=== PATIENT | male | born 1955 | race Caucasian/White ===

== ENCOUNTER 2016-07-29 11:38 | Inpatient (IN) | payer BC, OTHER ==
[2016-07-29] MEDS ORDERED: SODIUM CHLORIDE 0.9% 1,000 ML IV STA (11:58)
[2016-07-29 11:59] LABS: Glucose,Whole Blood 103 mg/dL (75-99)
--- NOTE | 2016-07-29 12:13 | ED ---
General Adult HPI - General Chief complaint: Neuro Symptoms/Deficit Stated complaint: rt side weakness Time Seen by Provider: 07/29/16 11:51 Source: patient, family, RN notes reviewed Mode of arrival: wheelchair Limitations: no limitations - History of Present Illness Initial comments: Patient is a pleasant 61-year-old male presenting to the emergency department complaining of right-sided weakness. Onset was yesterday morning. Symptoms are persistent. No history of similar symptoms previously. No confusion. No trauma. No headache. Patient does drink alcohol frequently. - Related Data Home Medications Medication Instructions Recorded Confirmed Multivit-Min/FA/Lycopene/Lut 1 tab PO PC-SUPPER 01/03/16 07/29/16 [Centrum Silver Tablet] Previous Rx's Medication Instructions Recorded amLODIPine [Norvasc] 5 mg PO DAILY #10 tab 01/04/16 Allergies Allergy/AdvReac Type Severity Reaction Status Date / Time No Known Allergies Allergy Verified 07/29/16 12:15 Review of Systems ROS Statement: Those systems with pertinent positive or pertinent negative responses have been documented in the HPI. ROS Other: All systems not noted in ROS Statement are negative. Constitutional: Denies: fever Eyes: Denies: eye pain ENT: Denies: ear pain Respiratory: Denies: cough Cardiovascular: Denies: chest pain Endocrine: Denies: fatigue Gastrointestinal: Denies: abdominal pain Genitourinary: Denies: dysuria Musculoskeletal: Denies: back pain Skin: Denies: rash Neurological: Reports: weakness. Denies: headache, paresthesias, confusion Past Medical History Past Medical History: Musculoskeletal Disorder, Neurologic Disorder Additional Past Medical History / Comment(s): 20# WGT LOSS, EXCESSIVE SLEEPING, WEAKNESS FOR PAST MONTH.headaches, diverticulosis, BP elevated with colonoscopy 12/18/15 has since seen ,horse shoe kidney, lower back pains @ times History of Any Multi-Drug Resistant Organisms: None Reported Past Surgical History: No Surgical Hx Reported Additional Past Surgical History / Comment(s): Colonoscopy 12/18/15 Additional Past Anesthesia/Blood Transfusion Reaction / Comment(s): elevated bp with colonoscopy-has since seen PCP Past Psychological History: Anxiety Smoking Status: Current every day smoker Past Alcohol Use History: Abuse, Heavy Additional Past Alcohol Use History / Comment(s): Smoker since age 18-1/2-1 ppd, . Was having 2-4 beers a day-has not had any since before colonoscopy 12/18/15 Past Drug Use History: None Reported Additional Drug Use History / Comment(s): SEV DAYS PER WK - Past Family History Father Family Medical History: Cancer, Diabetes Mellitus Additional Family Medical History / Comment(s): esophageal ca- Mother Family Medical History: Hypertension, Thyroid Disorder General Exam Limitations: no limitations General appearance: alert, in no apparent distress Head exam: Present: atraumatic Eye exam: Present: normal appearance, PERRL, EOMI ENT exam: Present: normal oropharynx Neck exam: Present: normal inspection Respiratory exam: Present: normal lung sounds bilaterally Cardiovascular Exam: Present: regular rate, normal rhythm GI/Abdominal exam: Present: soft. Absent: tenderness Extremities exam: Present: normal inspection Neurological exam: Present: alert, oriented X3, CN II-XII intact Expanded Speech: Present: fluid speech Sensory exam: Upper Extremity Light Touch: Normal, Lower Extremity Light Touch: Normal Motor strength exam: RUE: 4, LUE: 5, RLE: 4, LLE: 5 Eye Response: (4) open spontaneously Motor Response: (6) obeys commands Verbal Response: (5) oriented Psychiatric exam: Present: normal affect, normal mood Skin exam: Absent: rash Course Vital Signs 07/29/16 07/29/16 11:42 13:27 Temperature 98.9 F Pulse Rate 91 82 Respiratory 20 16 Rate Blood Pressure 197/108 184/109 O2 Sat by Pulse 96 98 Oximetry EKG Findings - EKG Comments: EKG Findings:: Normal sinus rhythm at 83. RI 160. QRS 88. QT 388. QTC 455. Left axis. Normal QRS. Normal ST-T. Medical Decision Making - Medical Decision Making Patient reevaluated and resting comfortably in bed. Unchanged. Case discussed in detail with Dr. reid, who will admit his patient with neurology consult. - Lab Data Result diagrams: 07/29/16 12:12 07/29/16 12:12 Lab Results 07/29/16 07/29/16 07/29/16 Range/Units 11:57 12:12 12:12 WBC 5.3 (3.8-10.6) k/uL RBC 5.22 (4.30-5.90) m/uL Hgb 16.7 (13.0-17.5) gm/dL Hct 49.9 (39.0-53.0) % MCV 95.5 (80.0-100.0) fL MCH 32.0 (25.0-35.0) pg MCHC 33.5 (31.0-37.0) g/dL RDW 13.0 (11.5-15.5) % Plt Count 247 (150-450) k/uL Neutrophils % 70 % Lymphocytes % 19 % Monocytes % 6 % Eosinophils % 2 % Basophils % 0 % Neutrophils # 3.7 (1.3-7.7) k/uL Lymphocytes # 1.0 (1.0-4.8) k/uL Monocytes # 0.3 (0-1.0) k/uL Eosinophils # 0.1 (0-0.7) k/uL Basophils # 0.0 (0-0.2) k/uL PT (9.0-12.0) sec INR (<1.1) APTT (22.0-30.0) sec Sodium (137-145) mmol/L Potassium (3.5-5.1) mmol/L Chloride (98-107) mmol/L Carbon Dioxide (22-30) mmol/L Anion Gap mmol/L BUN (9-20) mg/dL Creatinine (0.66-1.25) mg/dL Est GFR (MDRD) Af Amer (>60 ml/min/1.73 sqM) Est GFR (MDRD) Non-Af (>60 ml/min/1.73 sqM) Glucose (74-99) mg/dL POC Glucose (mg/dL) 103 H (75-99) mg/dL POC Glu [employer] Intern ID Branch, Fredi Calcium (8.4-10.2) mg/dL Total Bilirubin (0.2-1.3) mg/dL AST (17-59) U/L ALT (21-72) U/L Alkaline Phosphatase (38-126) U/L Total Creatine Kinase 43 L (55-170) U/L CK-MB (CK-2) <0.2 (0.0-2.4) ng/mL CK-MB (CK-2) Rel Index Troponin I <0.012 (0.000-0.034) ng/mL Total Protein (6.3-8.2) g/dL Albumin (3.5-5.0) g/dL Serum Alcohol mg/dL 07/29/16 07/29/16 Range/Units 12:12 12:12 WBC (3.8-10.6) k/uL RBC (4.30-5.90) m/uL Hgb (13.0-17.5) gm/dL Hct (39.0-53.0) % MCV (80.0-100.0) fL MCH (25.0-35.0) pg MCHC (31.0-37.0) g/dL RDW (11.5-15.5) % Plt Count (150-450) k/uL Neutrophils % % Lymphocytes % % Monocytes % % Eosinophils % % Basophils % % Neutrophils # (1.3-7.7) k/uL Lymphocytes # (1.0-4.8) k/uL Monocytes # (0-1.0) k/uL Eosinophils # (0-0.7) k/uL Basophils # (0-0.2) k/uL PT 10.8 (9.0-12.0) sec INR 1.1 (<1.1) APTT 27.3 (22.0-30.0) sec Sodium 142 (137-145) mmol/L Potassium 4.4 (3.5-5.1) mmol/L Chloride 105 (98-107) mmol/L Carbon Dioxide 30 (22-30) mmol/L Anion Gap 7 mmol/L BUN 11 (9-20) mg/dL Creatinine 1.10 (0.66-1.25) mg/dL Est GFR (MDRD) Af Amer >60 (>60 ml/min/1.73 sqM) Est GFR (MDRD) Non-Af >60 (>60 ml/min/1.73 sqM) Glucose 98 (74-99) mg/dL POC Glucose (mg/dL) (75-99) mg/dL POC Glu [employer] Intern ID Calcium 9.5 (8.4-10.2) mg/dL Total Bilirubin 0.9 (0.2-1.3) mg/dL AST 16 L (17-59) U/L ALT 21 (21-72) U/L Alkaline Phosphatase 71 (38-126) U/L Total Creatine Kinase (55-170) U/L CK-MB (CK-2) (0.0-2.4) ng/mL CK-MB (CK-2) Rel Index Troponin I (0.000-0.034) ng/mL Total Protein 7.2 (6.3-8.2) g/dL Albumin 3.9 (3.5-5.0) g/dL Serum Alcohol <10 mg/dL - Radiology Data Radiology results: image reviewed (Computed tomography scan of the brain shows degenerative changes and remote ischemia. No acute intercranial hemorrhage or mass effect or shift. Two-view chest x-ray shows no acute process.) Disposition Clinical Impression: Cerebrovascular accident Disposition: ADMITTED IP TO THIS [facility] Condition: Serious
[2016-07-29 12:20] LABS: Basophils % (A) 0 %; CH 32.7; CHCM 34.4; Eosinophils # (A) 0.1 k/uL (0-0.7); Eosinophils % (A) 2 %; HCT 49.9 % (39.0-53.0); HDW 2.42; HGB 16.7 gm/dL (13.0-17.5); Luc # (Auto) 0.13; Luc % (Auto) 3; Lymphocytes % (A) 19 %; MCHC 33.5 g/dL (31.0-37.0); MCV 95.5 fL (80.0-100.0); Mean Platelet Volume 7.3; Monocytes # (A) 0.3 k/uL (0-1.0); Monocytes % (A) 6 %; Neutrophils # (A) 3.7 k/uL (1.3-7.7); Neutrophils % (A) 70 %; RBC 5.22 m/uL (4.30-5.90); WBC 5.3 k/uL (3.8-10.6); WBC (Perox) 5.36
[2016-07-29 12:31] LABS: ALT 21 U/L (21-72); AST 16 U/L (17-59); Alcohol <10 mg/dL; Alkaline Phosphatase 71 U/L (38-126); Anion Gap 7 mmol/L; Blood Urea Nitrogen 11 mg/dL (9-20); Calcium 9.5 mg/dL (8.4-10.2); Carbon Dioxide 30 mmol/L (22-30); Chloride 105 mmol/L (98-107); Glucose 98 mg/dL (74-99); Non-African American GFR(MDRD) >60 (>60 ml/min/1.73 sqM); Potassium 4.4 mmol/L (3.5-5.1); Sodium 142 mmol/L (137-145); Total Bilirubin 0.9 mg/dL (0.2-1.3); Total Protein 7.2 g/dL (6.3-8.2)
[2016-07-29 12:32] LABS: INR 1.1 (<1.1); Partial Thromboplastin Time 27.3 sec (22.0-30.0); Prothrombin Time 10.8 sec (9.0-12.0)
[2016-07-29 12:37] LABS: Creatine Kinase 43 U/L (55-170)
[2016-07-29 12:50] LABS: Creatine Kinase MB <0.2 ng/mL (0.0-2.4); Troponin I <0.012 ng/mL (0.000-0.034)
--- NOTE | 2016-07-29 13:03 | XR ---
EXAMINATION TYPE: XR chest 2V DATE OF EXAM: 07/29/2016 12:46 PM COMPARISON: Chest x-ray January 04, 2016. HISTORY: Right-sided chest pain. TECHNIQUE: Frontal and lateral views of the chest are obtained. FINDINGS: There is no focal air space opacity, pleural effusion, or pneumothorax seen. The cardiac silhouette size is within normal limits. Old fracture deformities of the right lateral sixth and gisela nth ribs is redemonstrated along with the left lateral seventh rib. IMPRESSION: No acute cardiopulmonary process. No significant change from prior.
--- NOTE | 2016-07-29 13:03 | CT ---
EXAMINATION TYPE: CT brain wo con DATE OF EXAM: 07/29/2016 12:46 PM COMPARISON: 12/20/2015 HISTORY: Patient complains of right side weakness. CT DLP: 1100 mGycm Automated exposure control for dose reduction was used. FINDINGS: Mild to moderate generalized degenerative change. Remote infarction involving the left basal ganglia noted. Lacunar infarction involving the head of the caudate nucleus and thalamus bilaterally noted. Nonspecific white matter changes are seen most likely in the basis of remote microvascular ischemia. Intracranial vascular disease noted. IMPRESSION: No acute intracranial hemorrhage, mass effect, or midline shift is seen. Degenerative and suspected remote ischemic changes as discussed above.
[2016-07-29] MEDS ORDERED: ASPIRIN 325 MG TAB PO STA (14:25)
[2016-07-29] MEDS ORDERED: NICOTINE 14MG/24HR PATCH TRANSDERM STA (14:28)
[2016-07-29] MEDS ORDERED: LORazepam 2 MG/ML SYRINGE IV PRN ×4 (14:30)
[2016-07-29] MEDS ORDERED: THIAMINE 100 MG/ML 2 ML VIAL IM STA (14:30)
[2016-07-29] MEDS: SODIUM CHLORIDE 0.9% 1,000 ML IV SCH (18:47)
[2016-07-29] MEDS: THIAMINE 100 MG TAB PO SCH (19:02)
--- NOTE | 2016-07-29 21:28 | US ---
EXAMINATION TYPE: US carotid duplex BILAT DATE OF EXAM: 07/29/2016 9:16 PM COMPARISON: NONE CLINICAL HISTORY: Stenosis. Weakness in right arm and leg EXAM MEASUREMENTS: RIGHT: Peak Systolic Velocity (PSV) cm/sec ----- Right CCA: 44.4 ----- Right ICA: 39.8 ----- Right ECA: 91.8 ICA/CCA ratio: 0.9 RIGHT: End Diastole cm/sec ----- Right CCA: 10.4 ----- Right ICA: 13.5 ----- Right ECA: 11.5 LEFT: Peak Systolic Velocity (PSV) cm/sec ----- Left CCA: 55.4 ----- Left ICA: 64.7 ----- Left ECA: 71.1 ICA/CCA ratio: 1.2 LEFT: End Diastole cm/sec ----- Left CCA: 10.4 ----- Left ICA: 18.6 ----- Left ECA: 11.5 VERTEBRALS (direction of flow): Right Vertebral: Antegrade Left Vertebral: Antegrade TECHNOLOGIST IMPRESSION: IMPRESSION: There is antegrade flow in the vertebral arteries. The images and measurements suggest 5 0% stenosis in the left internal carotid artery and close to 50% stenosis in the right internal carot id artery. Criteria for Assigning % of Stenosis / Diameter reduction (Estimation based on the indirect measurements of the internal carotid artery velocities (ICA PSV). 1. Normal (no stenosis)=ICA PSV < 125 cm/s: ratio < 2.0: ICA EDV<40 cm/s. 2. Less than 50% stenosis=ICA PSV < 125 cm/s: ratio < 2.0: ICA EDV<40 cm/s. 3. 50 to 69% stenosis=ICA PSV of 125 to 230 cm/s: ration 2.0 ? 4.0: ICA EDV 40-100 cm/s. 4. Greater than 70% stenosis to near occlusion= ICA PSV > 230 cm/s: ratio > 4.0: ICA EDV > 100 cm/s. 5. Near occlusion= ICA PSV velocities may be low or undetectable: variable ratio and ICA EDV. 6. Total occlusion=unable to detect flow.
[2016-07-30] MEDS: SODIUM CHLORIDE 0.9% 1,000 ML IV SCH ×3 (06:05→20:52)
--- NOTE | 2016-07-30 11:02 | ECHOF ---
Referral Reason:Thrombus MEASUREMENTS -------- HEIGHT: 170.2 cm WEIGHT: 72.6 kg BP: 171/113 RVIDd: 3.0 cm (< 3.3) IVSd: 1.4 cm (0.6 - 1.1) LVIDd: 3.7 cm (3.9 - 5.3) LVPWd: 1.4 cm (0.6 - 1.1) IVSs: 2.0 cm LVIDs: 2.9 cm LVPWs: 1.6 cm LA Diam: 3.0 cm (2.7 - 3.8) LAESV Index (A-L): 21.62 ml/m Ao Diam: 4.2 cm (2.0 - 3.7) AV Cusp: 2.4 cm (1.5 - 2.6) LA Diam: 2.3 cm (2.7 - 3.8) MV EXCURSION: 11.714 mm (> 18.000) MV EF SLOPE: 54 mm/s (70 - 150) EPSS: 0.6 cm MV E George: 0.61 m/s MV DecT: 326 ms MV A George: 0.89 m/s MV E/A Ratio: 0.69 FINDINGS -------- Sinus rhythm. This was a technically good study. The left ventricular size is normal. There is moderate concentric left ventricular hypertrophy. Overall left ventricular systolic function is normal with, an EF between 55 - 60 %. The right ventricle is normal in size. Normal LA size by volume 22+/-6 ml/m2. The right atrium is normal in size. The aortic valve is trileaflet and appears structurally normal. The mitral valve is normal. Mild mitral regurgitation is present. The tricuspid valve appears structurally normal. The pulmonic valve was not well visualized. There is no pulmonic regurgitation present. The aortic root is dilated measuring 4.2cm. Normal inferior vena cava with normal inspiratory collapse consistent with estimated right atrial pressure of 5 mmHg. There is no pericardial effusion. CONCLUSIONS -------- 1. Sinus rhythm. 2. The aortic root is dilated measuring 4.2cm. 3. Normal inferior vena cava with normal inspiratory collapse consistent with estimated right atrial pressure of 5 mmHg. 4. There is no pericardial effusion. 5. This was a technically good study. 6. There is moderate concentric left ventricular hypertrophy. 7. Overall left ventricular systolic function is normal with, an EF between 55 - 60 %. 8. Normal LA size by volume 22+/-6 ml/m2. 9. The aortic valve is trileaflet and appears structurally normal. 10. Mild mitral regurgitation is present. 11. The tricuspid valve appears structurally normal. 12. The pulmonic valve was not well visualized. ACCOUNTS PAYABLE CLERK: Karen Peters RDCS
[2016-07-30] MEDS: FOLIC ACID 1 MG TAB PO SCH (11:11)
[2016-07-30] MEDS: MULTIVITAMINS, THERA 1 EACH TAB PO SCH (11:11)
[2016-07-30] MEDS: THIAMINE 100 MG TAB PO SCH ×2 (11:11→16:44)
--- NOTE | 2016-07-30 11:32 | P.HPIM ---
History of Present Illness H&P Date: 07/30/16 Chief Complaint: Right-sided weakness Patient is 61-year-old male, patient of Dr. Snider in the outpatient setting, with medical history significant for diverticulosis, hypertension, anxiety, nicotine dependence, and EtOH abuse. Patient states that he was in his normal state of health Friday night and when he woke up on Friday his right arm and right leg was weak. No history of similar episode. Patient denies recent illness, fevers, chills, nausea, vomiting, dysphagia, tinnitus, headache, diplopia, shortness of breath, chest pain, abdominal pain, numbness or tingling, urinary urgency, dysuria, hematuria, constipation or diarrhea. Patient reports good appetite. Patient reports that he drinks approximately 7 beers daily with last beer on Friday. CT brain without contrast on admission with evidence of mild to moderate generalized degenerative changes; remote infarction involving the left basal ganglia noted; lacunar infarction involving the head of the caudate nucleus and thalamus bilaterally noted; nonspecific white matter changes are seen most likely in the basis of remote white crevasse vascular ischemia; no acute intracranial hemorrhage, mass effect, or midline shift is seen. Chest x-ray on admission without evidence of acute cardiopulmonary process. EKG on admission shows normal sinus rhythm with left axis deviation. Ultrasound carotid duplex Doppler with evidence of 50% stenosis in the left internal carotid artery and posterior 50% stenosis in the right internal carotid artery. Admission labs essentially unremarkable. Blood pressure on admission 197/108. Patient was admitted to the selective care unit on telemetry with advanced neuro assessments and consult was requested for Dr. Breaux from neurology service and Dr. Raygoza from cardiovascular services. Upon examination, patient is sitting up in bed. Patient reports improvement in weakness in his right lower extremity but states right arm is still extremely weak. No other complaints overnight. Patient is swallowing without difficulty. Patient is urinating without difficulty. Denies headache, visual disturbances, nausea, vomiting, shortness of breath, or chest pain. Blood pressure 177/99. Past Medical History Past Medical History: Musculoskeletal Disorder, Neurologic Disorder Additional Past Medical History / Comment(s): diverticulosis,benign colon polyp removed,horse shoe kidney, lower back pains @ times History of Any Multi-Drug Resistant Organisms: None Reported Past Surgical History: No Surgical Hx Reported Additional Past Surgical History / Comment(s): Colonoscopy 12/18/15 Additional Past Anesthesia/Blood Transfusion Reaction / Comment(s): elevated bp with colonoscopy-has since seen PCP Past Psychological History: Anxiety Additional Psychological History / Comment(s): pt is independant, lives with his mom in a 2 story home.has 3 steps into home, upstairs and basement have 10 steps. no homecare services and no medical equipment. never served in the . Has worked as an auto electrician. Smoking Status: Current every day smoker Past Alcohol Use History: Occasional Additional Past Alcohol Use History / Comment(s): Smoker since age 18-1/2-1 ppd, . past medical record reflected that pt used to drink 2-4 beers a day, pt now stated he drinks occ( less than 14 per week) Past Drug Use History: None Reported Additional Drug Use History / Comment(s): SEV DAYS PER WK - Past Family History Father Family Medical History: Cancer, Diabetes Mellitus Additional Family Medical History / Comment(s): esophageal ca- Mother Family Medical History: Hypertension, Thyroid Disorder Medications and Allergies Home Medications Medication Instructions Recorded Confirmed Type Multivit-Min/FA/Lycopene/Lut 1 tab PO PC-SUPPER 01/03/16 07/29/16 History [Centrum Silver Tablet] Allergies Allergy/AdvReac Type Severity Reaction Status Date / Time No Known Allergies Allergy Verified 07/29/16 12:15 Physical Exam Vitals: Vital Signs Temp Pulse Pulse Resp BP BP Pulse Ox 07/30/16 04:00 97.6 F 92 16 177/95 96 07/30/16 00:00 97.2 F L 76 16 156/101 95 07/29/16 20:00 97.4 F L 75 16 165/102 96 07/29/16 18:29 97.8 F 77 18 180/112 97 07/29/16 16:55 98.3 F 70 16 183/109 99 07/29/16 16:27 98.3 F 70 16 183/109 99 07/29/16 15:27 72 16 178/112 99 07/29/16 15:13 75 16 178/112 97 Intake and Output 07/29/16 07/30/16 07/30/16 22:59 06:59 14:59 Intake Total 1350 Output Total 0 250 Balance 0 1350 -250 Intake: IV 1200 Sodium Chloride 0.9% 1, 1200 000 ml @ 100 mls/hr IV . Q10H [facility] Rx#:[id number] Oral 150 Output: Urine 0 250 Other: Voiding Method Toilet Toilet Urinal Urinal # Voids 1 Weight 75.2 kg GENERAL: Pt awake and alert, well-appearing, well-nourished, and in no acute distress. HEAD: Atraumatic, normocephalic. EYES: Pupils equal, round, and reactive to light, extraocular movements intact, sclera anicteric, conjunctiva are normal. ENT: Oropharynx clear without exudates. Moist mucous membranes. Tongue smooth, pink, no lesions, protrudes in midline. NECK:Normal range of motion, supple without lymphadenopathy or JVD. LUNGS: Breath sounds clear to auscultation bilaterally. No wheezes, rales, or rhonchi. HEART: Heart S1, S2, no S3 or S4. Regular rate and rhythm. No murmurs, rubs or gallops. ABDOMEN: Soft, nontender, nondistended, normoactive bowel sounds. No guarding, no rebound. No masses or organomegaly appreciated. EXTREMITIES: Palpable peripheral pulses. No edema. No calf tenderness. NEUROLOGICAL: Pt oriented x 3. Cranial nerves II through XII grossly intact. Speech fluent. Sensation intact. Right upper and right lower extremity weaker than left side. Gait not assessed. PSYCH: Normal mood, normal affect. SKIN: Warm, dry, intact. Normal turgor. No rashes or lesions. Results CBC & Chem 7: 07/29/16 12:12 07/29/16 12:12 Chest x-ray: report reviewed CT Scan - head: report reviewed Thrombosis Risk Factor Assmnt - DVT/VTE Prophylaxis DVT/VTE Prophylaxis: Pharmacologic Prophylaxis ordered, Mechanical Prophylaxis ordered - Choose All That Apply Any of the Below Risk Factors Present?: Yes Each Factor Represents 1 point: Age 41-60 years, Obesity (BMI >25) Other Risk Factors: Yes Other congenital or acquired thrombophilia - If yes, enter type in comment: No Each Risk Factor Represents 5 Points: Stroke (< 1 month) Thrombosis Risk Factor Assessment Total Risk Factor Score: 7 Thrombosis Risk Factor Assessment Level: High Risk Assessment and Plan Plan: Impression and plan: 1. Acute weakness to right upper and right lower extremity suspect secondary to acute CVA, exact time unknown. Neurology consult requested, recommendations pending. Continue full strength aspirin, advanced neurological assessment, physical therapy, DVT prophylaxis, and continuous cardiac monitoring. 2. 50% stenosis and left internal carotid artery and close to 50% stenosis in right internal carotid artery. Cardiovascular surgery consult requested, recommendations pending. Continue full strength aspirin. 3. Hypertensive urgency, present on admission, suspect secondary to possible vasospasms from CVA. Blood pressure improved this morning. Continue to hold Norvasc for now for cerebral perfusion. 4. History of hypertension and possible noncompliance with medications. 5. Nicotine dependence. Smoking cessation encouraged. 6. Alcohol abuse. CIWA protocol in place. Continue folic acid, multivitamin, and thiamine. Social work consult in place. 7. History of remote infarction involving left basal ganglia. 8. Lacunar infarction involving head of the caudate nucleus and thalamus bilaterally. 9. History of diverticulosis with last colonoscopy on 12/18/2015 with polypectomy. 10. History of EBV. Continue to monitor patient. Continue current medications. Continue to follow with neurology and cardiovascular surgery. Continue DVT prophylaxis. Repeat CBC and BMP in a.m. The above impression and plan have been discussed and directed by Dr. Snider. Howard FLOWER acting as scribe for Dr. Snider.
[2016-07-30] MEDS ORDERED: RX INFO: IV CONTRAST WAS GIVEN 1 EACH MISC MISCELLANE PRN ×2 (12:49→13:06)
[2016-07-30] MEDS: ASPIRIN 325 MG TAB PO SCH (13:09)
[2016-07-30] MEDS: amLODIPine 5 MG TAB PO SCH (14:36)
--- NOTE | 2016-07-30 14:42 | CT ---
CT angiogram head and neck HISTORY: Cerebral vascular accident Correlation to CT brain 29 July 2016 Helical acquisition obtained from the thoracic aorta through the drain following 65 cc Omni 350 IV. T hree-dimensional reconstructions on an alternate workstation The thoracic aorta is patent. The innominate, left and right common carotid, internal and external ca rotid, left and right subclavian, left and right vertebral arteries are patent. Atheromatous plaque p resent at the carotid bulb on the left. Internal carotid artery on the right is markedly tortuous. An terior and posterior circulations are intact. No evident aneurysm or vascular malformation. Lung apic es show emphysematous changes. IMPRESSION: Patent cerebrovascular circulation, no significant stenosis is evident.
--- NOTE | 2016-07-30 16:11 | P.GSCN ---
History of Present Illness History of present illness: 61 old white male, patient had an episode of right-sided weakness affecting his right arm and right leg with some recovery heparin on Friday patient came to the hospital on Friday and had a complete workup including CAT scan of the head which showed degenerative changes and also they found that patient has elected or infarct involving the caudate nucleus patient had ultrasound of the carotid which shows 50% stenosis of the bilateral internal carotid artery no history of speech problemof seizure problem Medical history history of diverticulosis, history of smoking daily basis On examination neck is supple no bruit appreciated Chest clear auscultation first and second sound normal Abdomen soft nontender Vascular examination brachial radial femoral pulses are present Center system patient is oriented to time and place patient has a mild weakness in the right arm and right leg compared to the left arm and leg his weakness is improving Patient on Ecotrin 325 mg daily and is scheduled to have a CT of the carotid waiting for the results we'll follow with you Past Medical History Past Medical History: Musculoskeletal Disorder, Neurologic Disorder Additional Past Medical History / Comment(s): diverticulosis,benign colon polyp removed,horse shoe kidney, lower back pains @ times History of Any Multi-Drug Resistant Organisms: None Reported Past Surgical History: No Surgical Hx Reported Additional Past Surgical History / Comment(s): Colonoscopy 12/18/15 Additional Past Anesthesia/Blood Transfusion Reaction / Comm: elevated bp with colonoscopy-has since seen PCP Past Psychological History: Anxiety Additional Psychological History / Comment(s): pt is independant, lives with his mom in a 2 story home.has 3 steps into home, upstairs and basement have 10 steps. no homecare services and no medical equipment. never served in the . Has worked as an marine electrician. Smoking Status: Current every day smoker Past Alcohol Use History: Occasional Additional Past Alcohol Use History / Comment(s): Smoker since age 18-1/2-1 ppd, . past medical record reflected that pt used to drink 2-4 beers a day, pt now stated he drinks occ( less than 14 per week) Past Drug Use History: None Reported Additional Drug Use History / Comment(s): SEV DAYS PER WK - Past Family History Father Family Medical History: Cancer, Diabetes Mellitus Additional Family Medical History / Comment(s): esophageal ca- Mother Family Medical History: Hypertension, Thyroid Disorder Medications and Allergies Home Medications Medication Instructions Recorded Confirmed Type Multivit-Min/FA/Lycopene/Lut 1 tab PO PC-SUPPER 01/03/16 07/29/16 History [Centrum Silver Tablet] Allergies Allergy/AdvReac Type Severity Reaction Status Date / Time No Known Allergies Allergy Verified 07/29/16 12:15 Surgical - Exam Vital Signs Temp Pulse Resp BP Pulse Ox 98.9 F 91 20 197/108 96 07/29/16 11:42 07/29/16 11:42 07/29/16 11:42 07/29/16 11:42 07/29/16 11:42 Results - Labs 07/29/16 12:12 07/29/16 12:12
[2016-07-31] MEDS: SODIUM CHLORIDE 0.9% 1,000 ML IV SCH ×2 (06:15→17:41)
[2016-07-31 06:24] LABS: Basophils % (A) 0 %; CH 32.5; CHCM 33.6; Eosinophils # (A) 0.1 k/uL (0-0.7); Eosinophils % (A) 2 %; HCT 46.7 % (39.0-53.0); HDW 2.35; HGB 15.5 gm/dL (13.0-17.5); Luc # (Auto) 0.12; Luc % (Auto) 2; Lymphocytes % (A) 19 %; MCH 32.3 pg (25.0-35.0); MCHC 33.2 g/dL (31.0-37.0); MCV 97.2 fL (80.0-100.0); Mean Platelet Volume 6.6; Monocytes # (A) 0.3 k/uL (0-1.0); Monocytes % (A) 6 %; Neutrophils # (A) 3.6 k/uL (1.3-7.7); Neutrophils % (A) 70 %; WBC 5.1 k/uL (3.8-10.6); WBC (Perox) 5.29
[2016-07-31 06:39] LABS: Anion Gap 9 mmol/L; Blood Urea Nitrogen 10 mg/dL (9-20); Carbon Dioxide 21 mmol/L (22-30); Chloride 110 mmol/L (98-107); Cholesterol 200 mg/dL (<200); Glucose 91 mg/dL (74-99); HDL Cholesterol 47 mg/dL (40-60); Magnesium 1.8 mg/dL (1.6-2.3); Non-African American GFR(MDRD) >60 (>60 ml/min/1.73 sqM); Sodium 140 mmol/L (137-145); Triglycerides 80 mg/dL (<150)
--- NOTE | 2016-07-31 07:50 | CONS ---
DATE OF CONSULTATION: 07/30/2016 CHIEF COMPLAINT: Right-sided weakness. HISTORY OF PRESENT ILLNESS: The patient is a 61-year-old male who is being evaluated by the neurology service per the request of Dr. Snider for right-sided weakness. The patient states that he first noticed the symptoms on Friday, but he did not seek any medical attention until late Friday afternoon. He denies any previous symptoms similar to this. The patient does have a history of hypertension and tobacco dependence. He was not on any antiplatelet medications at home. In the emergency room, a CT scan of the brain was done, which was normal. A carotid Doppler was done, which showed evidence of 50% stenosis involving bilateral internal carotid arteries. A CT angiogram of the neck was done, which showed no evidence of any significant stenosis. His CBC, comprehensive metabolic profile, cardiac enzymes, and INR were normal. At the time of my evaluation, the patient is lying in his bed and appears to be in no acute distress. He continues to complain of some right-sided weakness and denies any changes in the intensity since his admission. He is currently on IV hydration and he has been started on aspirin. PAST MEDICAL HISTORY: Diverticulosis, benign colon polyps, recurrent low back pain, hypertension, anxiety disorder. SOCIAL HISTORY: The patient occasionally drinks alcohol. He used to drink more heavily in the past. The patient smokes one half to 1 pack of cigarettes daily. He denies any IV drug use. FAMILY HISTORY: Positive for cancer and diabetes and hypertension. HOME MEDICATIONS: Reviewed in the chart. ALLERGIES: No known drug allergies. REVIEW OF SYSTEMS: As mentioned above and otherwise negative. PHYSICAL EXAM: Vital signs show a temperature of 99.0, pulse 78, respirations 18, blood pressure 173/112. GENERAL APPEARANCE: The patient is a well-developed male who appears to be in no acute distress. HEENT: Normocephalic, atraumatic, no facial asymmetry is seen. Neck is supple with no masses felt. CARDIOVASCULAR: Regular rate and rhythm. ABDOMEN: Nontender, nondistended. Extremities showed no edema or clubbing. NEUROLOGICAL EXAM: The patient is alert, aware, and oriented x3. Speech and language are normal. Strength is 4+/5 in the right upper and lower extremity and 5 out of 5 in the left upper and lower extremity. A mild pronator drift is seen on the right side. Sensory exam was normal to light touch in all 4 extremities. No facial asymmetry is seen on cranial nerve testing. No tremors or seizure-like activity is seen. IMPRESSION: 1. Acute ischemic stroke, left middle cerebral artery distribution. 2. Right hemiparesis. 3. Hypertension. 4. Tobacco dependence. RECOMMENDATIONS: The patient does appear to have suffered an acute ischemic stroke involving the left middle cerebral artery distribution. He continues to have a mild right hemiparesis. Physical therapy will be consulted. The patient will continue on aspirin [address] angiogram of the neck showed no evidence of any stenosis. His current stroke risk factors include is age, gender, hypertension history, and tobacco dependence. His Norvasc will be restarted. I will order an MRI of the brain, fasting lipid panel and serum homocysteine level. The patient was counseled on tobacco cessation. Continue the rest of your current workup and I will continue to follow with you. Further recommendations to follow. Thank you Dr. Snider for allowing me to participate in the care of your patient. If you have any questions, please feel free to contact me.
[2016-07-31] MEDS: ASPIRIN 325 MG TAB PO SCH (09:10)
[2016-07-31] MEDS: THIAMINE 100 MG TAB PO SCH ×2 (09:10→17:45)
[2016-07-31] MEDS: MULTIVITAMINS, THERA 1 EACH TAB PO SCH (09:11)
[2016-07-31] MEDS: FOLIC ACID 1 MG TAB PO SCH (09:11)
[2016-07-31] MEDS: amLODIPine 5 MG TAB PO SCH (09:11)
[2016-07-31] MEDS ORDERED: amLODIPine 5 MG TAB PO STA (13:07)
--- NOTE | 2016-07-31 13:21 | P.PN ---
Subjective Principal diagnosis: CVA Patient seen and examined with his mother at bedside. The patient states he feels fine and wants to go home. His BP is elevated today and he was restarted on his home Norvasc yesterday. He states his blood pressure is always high. He denies headache, chest pain, shortness of breath. The patient states his right-sided weakness is improving. He just states he is anxious to go home. Objective - Vital Signs Vital signs: Vital Signs Temp 96.4 F L 07/31/16 07:50 Pulse 85 07/31/16 11:34 Resp 16 07/31/16 11:34 BP 199/118 07/31/16 11:34 Pulse Ox 97 07/31/16 11:34 Intake & Output 07/30/16 07/31/16 07/31/16 18:59 06:59 18:59 Intake Total 287 498 7106 Output Total 250 150 Balance 965 394 1643 Weight 75.3 kg Intake: IV 800 600 600 Sodium Chloride 0.9% 1, 800 600 600 000 ml @ 100 mls/hr IV . Q10H [facility] Rx#:[id number] Oral 444 Output: Urine 250 150 Other: Voiding Method Toilet Urinal # Voids 0 1 - Exam Gen.: Patient is alert and oriented 3, no acute distress Cardiovascular: Regular rate and rhythm, S1/S2 Lungs: Clear to auscultation bilaterally no wheezes rales or rhonchi Abdomen: Soft nontender nondistended positive bowel sounds Extremities: No edema - Labs CBC & Chem 7: 07/31/16 05:40 07/31/16 05:40 Labs: Abnormal Lab Results - Last 24 Hours (Table) 07/31/16 Range/Units 05:40 Chloride 110 H (98-107) mmol/L Carbon Dioxide 21 L (22-30) mmol/L Cholesterol 200 H (<200) mg/dL LDL Cholesterol, Calc 137 H (0-99) mg/dL Assessment and Plan Plan: 1. Acute weakness to right upper and right lower extremity suspect secondary to acute CVA, exact time unknown. Neurology consult requested, recommendations pending. Continue full strength aspirin, advanced neurological assessment, physical therapy, and continuous cardiac monitoring. 2. 50% stenosis and left internal carotid artery and close to 50% stenosis in right internal carotid artery. Cardiovascular surgery consult requested, recommendations pending. Continue full strength aspirin. 3. Hypertensive urgency, present on admission, suspect secondary to possible vasospasms from CVA. Increase dose of Norvasc to 10 mg daily. Monitor BP. 4. History of hypertension and possible noncompliance with medications. 5. Nicotine dependence. Smoking cessation encouraged. 6. Alcohol abuse. [facility] protocol in place. Continue folic acid, multivitamin, and thiamine. Social work consult in place. 7. History of remote infarction involving left basal ganglia. 8. Lacunar infarction involving head of the caudate nucleus and thalamus bilaterally. 9. History of diverticulosis with last colonoscopy on 12/18/2015 with polypectomy. 10. History of EBV. Plan for MRI per neurology. Case management consult for discharge planning. Patient seen and examined covering for Dr. Snider.
--- NOTE | 2016-07-31 15:06 | MR ---
EXAMINATION TYPE: MR brain wo con DATE OF EXAM: 07/31/2016 2:53 PM COMPARISON: CT brain from 2 days earlier. HISTORY: CVA. Admitted for neuro deficits or right-sided weakness 2 days earlier. TECHNIQUE: Multiplanar, multisequence imaging of the brain and brainstem is performed without IV cont rast. FINDINGS: Diffusion weighted images demonstrate small roughly 5 x 4 mm focus of increased signal on diffusion w eighted images with diminished signal on ADC mapping involving the left aspect of the central lizbeth se en best axial image 80 series 405 that shows T1 hypointensity and T2 hyperintensity consistent with e volving acute lacunar infarct. There are additional adjacent old lacunar infarcts in the lizbeth identif ied bilaterally. There is no worrisome extraaxial fluid collection. There is ventricular and sulcal prominence consist ent with diffuse cerebral atrophy. There are focal and confluent areas of T2 hyperintensity seen thro ughout the white matter bilaterally presumed on basis of product of chronic small vessel ischemic flavia nge. There is old infarct involving the left basal ganglia and internal capsule and old lacunar infar ct involving the right posterior basal ganglia on axial image 16 redemonstrated. Old lacunar infarcts left thalamus are redemonstrated. The craniocervical junction appears within normal limits. Normal vascular flow voids are present. The visualized sinuses are clear and the globes are intact. IMPRESSION: 1. Small evolving acute lacunar infarct left aspect of lizbeth. 2. There is background of mild diffuse cerebral atrophy and moderate to severe chronic small vessel i schemic change with multiple old infarcts redemonstrated bilaterally including additional old lacunar pontine infarcts. A Yellow message has been communicated to Argelia Breaux MD~[id number] via the [employer] Critical Result system on 07/31/2016 3:03 PM, Message ID [id number].
--- NOTE | 2016-07-31 17:22 | P.PN ---
Subjective Principal diagnosis: Stroke This 61-year-old male continue be evaluated by the neurology service for right-sided weakness. He did not seek medical attention on the onset of symptoms. He denies previous symptoms similar to this. Initial CT of the brain was done and showed some old lacunar infarcts. Carotid Doppler showed 50 % stenosis of bilateral internal carotid arteries. He has had cardiovascular evaluation for this. CTA of the neck showed no hemodynamically severe stenosis. His MRI did show small evolving acute lacunar infarct in the left aspect of the lizbeth. It also showed moderate to severe chronic small vessel ischemic disease with multiple old lacunar infarcts bilaterally in the lizbeth. His lipid panel showed a triglyceride of 80 a total cholesterol of 200 and LDL 137 and HDL of 47. He has had no new neurological symptoms since his admission. His right-sided weakness is improving. Objective - Vital Signs Vital signs: Vital Signs Temp 96.4 F L 07/31/16 07:50 Pulse 80 07/31/16 15:36 Resp 16 07/31/16 15:36 BP 176/100 07/31/16 15:36 Pulse Ox 98 07/31/16 15:36 Intake & Output 07/30/16 07/31/16 07/31/16 18:59 06:59 18:59 Intake Total 460 442 7998 Output Total 250 150 Balance 837 749 6207 Weight 75.3 kg Intake: IV 800 600 600 Sodium Chloride 0.9% 1, 800 600 600 000 ml @ 100 mls/hr IV . Q10H [facility] Rx#:[id number] Oral 444 Output: Urine 250 150 Other: Voiding Method Toilet Urinal # Voids 0 1 - Constitutional General appearance: Present: average body habitus, no acute distress - EENT Eyes: Present: EOMI, PERRLA. Absent: abnormal pupil, ptosis ENT: Present: hearing grossly normal - Neck Neck: Present: normal ROM. Absent: rigidity - Respiratory Respiratory: negative: prolonged expiration, prolonged inspiration - Cardiovascular Rhythm: regular - Gastrointestinal General gastrointestinal: Absent: distended, tenderness - Neurologic Neurologic Comment(s): Patient is alert awake and oriented 3. Speech-language are normal. Strength is 4+ out of 5 in right upper extremity 5 minus out of 5 on the right lower extremity 5 out of 5 on the left upper and lower extremity. No pronator drift seen on the right. There is some dysmetria on the right. There is no facial asymmetry. No tremors seizure-like activities are seen. He has no problems with demonstrated swallowing. - Labs CBC & Chem 7: 07/31/16 05:40 07/31/16 05:40 Labs: Abnormal Lab Results - Last 24 Hours (Table) 07/31/16 Range/Units 05:40 Chloride 110 H (98-107) mmol/L Carbon Dioxide 21 L (22-30) mmol/L Cholesterol 200 H (<200) mg/dL LDL Cholesterol, Calc 137 H (0-99) mg/dL Assessment and Plan (1) Right hemiparesis Status: Acute (2) Hypertension Status: Chronic (3) Hyperlipidemia Status: Chronic (4) Tobacco use disorder Status: Chronic (5) Cerebrovascular accident Status: Acute Plan: The patient has indeed suffered a stroke of left lizbeth. He continues to have mild right sided symptoms, which are improving. Physical therapy will continue to work with him. He will continue aspirin 325 mg. I have had Lipitor 20 mg daily. Cardiology will continue to follow. Recommend strict blood pressure control. We will follow on as-needed basis for any progression in his neurological status. Otherwise he is cleared from a neurological standpoint. I have performed a history and physical on the above patient. I have reviewed the above note, and agree.
[2016-07-31] MEDS: ATORVASTATIN 20 MG TAB PO SCH (21:06)
[2016-08-01] MEDS: SODIUM CHLORIDE 0.9% 1,000 ML IV SCH ×3 (04:04→23:33)
[2016-08-01] MEDS: MULTIVITAMINS, THERA 1 EACH TAB PO SCH (08:10)
[2016-08-01] MEDS: THIAMINE 100 MG TAB PO SCH ×2 (08:10→15:46)
[2016-08-01] MEDS: ASPIRIN 325 MG TAB PO SCH (08:10)
[2016-08-01] MEDS: FOLIC ACID 1 MG TAB PO SCH (08:11)
[2016-08-01] MEDS: amLODIPine 10 MG TAB PO SCH (08:11)
--- NOTE | 2016-08-01 08:29 | P.PN ---
Progress Note - Text 61 old male with history of CVA patient had a complete workup carotid ultrasound and as CTA of the carotid carotid which was found to be in no hemodynamic stenosis and a MRI showed infarct in the lizbeth at this point patient is not a candidate for any surgical intervention patient had a normal CT angiography of the carotids and patient needs a medical management
--- NOTE | 2016-08-01 10:31 | EEG ---
DATE OF SERVICE: 07/31/2016 INDICATIONS FOR EXAMINATION: Stroke. AGE: 61Y DESCRIPTION OF PROCEDURE: From the beginning of the tracing, with the patient's eyes closed, the background rhythm was mostly consisting of 9 Hz alpha frequency in the posterior occipital leads. No obvious asymmetry is seen. Photic stimulation was performed with a minimal driving response seen. No pathological waves were elicited. Occasional movement artifacts are noticed. Hyperventilation was not performed. The patient remains awake throughout the tracing. No epileptiform discharges were seen. His EKG lead showed regular rate and rhythm. INTERPRETATION: This awake EEG can be considered within normal limits. There was no asymmetry seen. No epileptiform discharges were noticed. The absence of epileptiform discharges does not rule out the diagnosis of epilepsy. Therefore, clinical correlation is recommended.
[2016-08-01] MEDS: LISINOPRIL 10 MG TAB PO SCH (15:46)
[2016-08-01] MEDS: PANTOPRAZOLE 40 MG TABLET PO SCH (15:47)
--- NOTE | 2016-08-01 18:15 | PN ---
DATE OF SERVICE: 08/01/2016 We are covering for Dr. Yoav Snider. The patient is a 61-year-old male who is seen sitting up in bed, is awake and alert, feeling a little stronger every day. Eager to go home. He is afebrile. Blood pressure remains somewhat elevated. Patient denies any pain or shortness of breath. He is in no acute distress. He has had no worsening of his neurological symptoms. On physical exam, vital signs, temp is 97.6, heart rate is 80, respiratory rate 18, blood pressure is 158/94, O2 sat is 95% on room air. HEENT: Head is normocephalic, atraumatic. NECK: Supple. Trachea is midline. LUNGS: Clear but diminished. No rales or wheezes. HEART: S1 and S2 are heard. Not tachycardic. ABDOMEN: Soft. Bowel sounds are heard. EXTREMITIES: With no edema. NEUROLOGIC: Patient awake and alert. Does have some weakness to his right upper and right lower extremity. He is alert and oriented x3. LABS: No new labs to review. Imaging: MRI done last night shows small evolving acute lacunar infarct, left aspect of the lizbeth. There is background of mild diffuse cerebral atrophy and moderate to severe chronic small vessel ischemic change with multiple old infarcts redemonstrated bilaterally including additional old lacunar pontine infarcts. Yellow message communicated to the neurologist. IMPRESSION: 1. Acute cerebrovascular accident, left aspect of the lizbeth with multiple old infarcts noted. 2. Right upper and right lower extremity weakness. 3. Hypertensive urgency. 4. History of hypertension and possible noncompliance with medications. 5. Nicotine dependence. 6. Alcohol abuse. 7. History of remote infarction involving the left basal ganglia. 8. Lacunar infarction involving head of the caudate nucleus and thalamus bilaterally. 9. History of diverticulosis and polypectomy. 10. History of EBV. PLAN: Continue current medications which have been reviewed. Neurology recommendations appreciated. Continue physical therapy. Continue to increase activity as tolerated. Patient should be ambulating up in room p.r.n. We will add Lisinopril 10 mg p.o. daily. Continue to monitor blood pressure and attempt to maintain tight control. We will add Prilosec 20 mg p.o. daily for GI prophylaxis. We will check a BMP, magnesium and phos in the a.m. and would expect possible discharge home in the next 24 hours if patient continues to improve, again we are covering for Dr. Snider. I performed a history and physical examination of this patient and discussed the same with the dictator. I agree with the dictator's note. Any additional findings/opinions, etc. will be noted.
[2016-08-01] MEDS: ATORVASTATIN 20 MG TAB PO SCH (20:34)
[2016-08-01 20:41] VITALS: RESP 16
[2016-08-02] MEDS: PANTOPRAZOLE 40 MG TABLET PO SCH (06:08)
[2016-08-02 06:38] LABS: Anion Gap 8 mmol/L; Blood Urea Nitrogen 15 mg/dL (9-20); Calcium 9.4 mg/dL (8.4-10.2); Carbon Dioxide 24 mmol/L (22-30); Chloride 107 mmol/L (98-107); Glucose 93 mg/dL (74-99); Magnesium 2.1 mg/dL (1.6-2.3); Non-African American GFR(MDRD) >60 (>60 ml/min/1.73 sqM); Phosphorous 3.7 mg/dL (2.5-4.5); Potassium 4.2 mmol/L (3.5-5.1); Sodium 139 mmol/L (137-145)
[2016-08-02] MEDS: SODIUM CHLORIDE 0.9% 1,000 ML IV SCH (08:58)
[2016-08-02] MEDS: ASPIRIN 325 MG TAB PO SCH (08:59)
[2016-08-02] MEDS: amLODIPine 10 MG TAB PO SCH (08:59)
[2016-08-02] MEDS: LISINOPRIL 10 MG TAB PO SCH (08:59)
[2016-08-02 09:02] VITALS: BP 134/80; PULSE 75; TEMP 98.2
[2016-08-02] MEDS: MULTIVITAMINS, THERA 1 EACH TAB PO SCH (10:52)
[2016-08-02] MEDS: FOLIC ACID 1 MG TAB PO SCH (10:52)
[2016-08-02] MEDS: THIAMINE 100 MG TAB PO SCH (10:52)
--- NOTE | 2016-08-02 10:59 | P.DS ---
Providers Date of admission: 07/29/16 14:27 Expected date of discharge: 08/02/16 Attending physician: Santo Snider Consults: 07/30/16 08:25 Consult Physician Urgent Consulting Provider: Freddy Raygoza Consult Reason/Comments: carotid stenosis Do you want consulting provider notified?: Yes Primary care physician: Santo Snider [facility] Course: Patient is a 61 year old male patient who was admitted with right sided weakness , and problems with speech. Patient was seen by Neurology and Vascular surgery. MRI was postive for CVA. Patient is eager to go home. Blood pressure is controlled. Patient has been seen by PT/OT and is stable for discharge. Discharge diagnosis: Acute weakness to right upper and right lower extremity suspect secondary to acute CVA, exact time unknown. Neurology consult requested, recommendations pending. Continue full strength aspirin, advanced neurological assessment, physical therapy, and continuous cardiac monitoring. 2. 50% stenosis and left internal carotid artery and close to 50% stenosis in right internal carotid artery. Cardiovascular surgery consult requested, recommendations pending. Continue full strength aspirin. 3. Hypertensive urgency, present on admission, suspect secondary to possible vasospasms from CVA. Increase dose of Norvasc to 10 mg daily. Monitor BP. 4. History of hypertension and possible noncompliance with medications. 5. Nicotine dependence. Smoking cessation encouraged. 6. Alcohol abuse. [facility] protocol in place. Continue folic acid, multivitamin, and thiamine. Social work consult in place. 7. History of remote infarction involving left basal ganglia. 8. Lacunar infarction involving head of the caudate nucleus and thalamus bilaterally. 9. History of diverticulosis with last colonoscopy on 12/18/2015 with polypectomy. 10. History of EBV. Patient Condition at Discharge: Serious Plan - Discharge Summary New Discharge Prescriptions: Atorvastatin [Lipitor] 20 mg PO HS #30 tab Lisinopril [Zestril] 10 mg PO DAILY #30 tab amLODIPine [Norvasc] 10 mg PO DAILY #30 tab Discharge Medication List Multivit-Min/FA/Lycopene/Lut [Centrum Silver Tablet] 1 tab PO PC-SUPPER [History] Aspirin 325 mg PO DAILY tab 08/02/16 [Rx] Atorvastatin [Lipitor] 20 mg PO HS #30 tab 08/02/16 [Rx] Lisinopril [Zestril] 10 mg PO DAILY #30 tab 08/02/16 [Rx] Multivitamins, Thera [Multivitamin (formulary)] 1 each PO DAILY@1200 tab [Rx] amLODIPine [Norvasc] 10 mg PO DAILY #30 tab 08/02/16 [Rx] Follow up Appointment(s)/Referral(s): Santo Snider MD [Primary Care Provider] - 1-2 days Discharge Disposition: HOME SELF-CARE
== END 2016-08-02 13:05 | disposition home or self-care (01) | DRG 65 ==
LOC: EC 11:38 → 6SEL 14:27
PROVIDERS: ADMIT Family Medicine; ATTEND Family Medicine
DX: I63.9 Cerebral infarction, unspecified (principal); G81.91 Hemiplegia, unspecified affecting right dominant side; I65.23 Occlusion and stenosis of bilateral carotid arteries; I10 Essential (primary) hypertension; I16.0 Hypertensive urgency; F10.10 Alcohol abuse, uncomplicated; Q63.1 Lobulated, fused and horseshoe kidney; K57.90 Diverticulosis of intestine, part unspecified, without perforation or abscess without bleeding; F17.210 Nicotine dependence, cigarettes, uncomplicated; E78.5 Hyperlipidemia, unspecified; F41.9 Anxiety disorder, unspecified; Z86.010 Personal history of colon polyps; Z79.899 Other long term (current) drug therapy
CPT/HCPCS: 36415; 70450; 70496; 70498; 70551; 71020; 80048; 80053; 80061; 80320; 82550; 82553; 83090; 83735; 84100; 84484; 85025; 85610; 85730; 93005; 93306; 93880; 94760; 95816; 96360; 96361; 96372; 99285

== ENCOUNTER → 2017-01-06 | Outpatient (CLI) | payer OTHER ==
[2017-01-06 10:39] LABS: CH 32.6; CHCM 33.6; HCT 47.6 % (39.0-53.0); HDW 2.38; HGB 15.5 gm/dL (13.0-17.5); MCH 31.9 pg (25.0-35.0); MCHC 32.6 g/dL (31.0-37.0); MCV 97.7 fL (80.0-100.0); Mean Platelet Volume 6.9; RBC 4.88 m/uL (4.30-5.90); RDW 14.1 % (11.5-15.5); WBC 5.8 k/uL (3.8-10.6)
[2017-01-06 11:13] LABS: Anion Gap 8 mmol/L; Blood Urea Nitrogen 14 mg/dL (9-20); Carbon Dioxide 28 mmol/L (22-30); Chloride 107 mmol/L (98-107); Non-African American GFR(MDRD) >60 (>60 ml/min/1.73 sqM); Potassium 4.4 mmol/L (3.5-5.1); Sodium 143 mmol/L (137-145)
== END | disposition home or self-care (01) ==
LOC: LABPAT 09:48
PROVIDERS: ATTEND Internal Medicine Interventional Cardiology
DX: Z01.812 Encounter for preprocedural laboratory examination (principal); I77.9 Disorder of arteries and arterioles, unspecified
CPT/HCPCS: 80051; 82565; 84520; 85027

== ENCOUNTER → 2017-01-09 | Day surgery (SDC) | payer OTHER ==
[2017-01-01 14:50] VITALS: BMI 25.0
[~2017-01-09] MED LIST: IV FLUID CONTINUATION 1,000 ML IV ONE; PROPOFOL 10 MG/ML 20 ML VIAL IV ONE; SODIUM CHLORIDE 0.9% 250 ML IV ONE
[2017-01-09] MEDS: BENZOCAINE SPRAY 1 SPRAY CAN MUCOUS MEM ONE ×2 (07:46→08:00)
[2017-01-09] MEDS: MIDAZOLAM 2 MG/2 ML VIAL IV ONE ×2 (08:00→08:05)
[2017-01-09] MEDS: fentaNYL (PF) 50 MCG/ML 2 ML AMP IV ONE ×2 (08:00→08:05)
[2017-01-09 08:54] VITALS: RESP 14
[2017-01-09 09:20] VITALS: TEMP 98
[2017-01-09 10:58] VITALS: PULSE 72
[2017-01-09 10:59] VITALS: BP 113/70
--- NOTE | 2017-01-09 16:33 | ECHOT ---
TRANSESOPHAGEAL ECHOCARDIOGRAM Date of Service: 01/09/2017 PROCEDURE PERFORMED: Transesophageal echocardiogram. INDICATION: This is a pleasant 61-year-old gentleman who suffers from stroke. The LOYD is to rule out any cardiac source of embolization. COMPLICATION: None. LEVEL OF SEDATION: Deep sedation was performed with CLINICAL FELLOW and anesthesiologist in the room. PROCEDURE DESCRIPTION: After obtaining an informed consent, the patient was brought to the Transesophageal Echocardiogram Suite. He was turned in the left lateral position. The pulse oximetry and heart rate monitors were attached to the patient. Following that and after inducing general anesthesia using propofol, the transesophageal echocardiogram was advanced to the midesophagus where we did the echocardiogram images as well as color Doppler images of the various cardiac structures. Particular attention was paid to the left atrial appendage as well as to the interatrial septum. The procedure was completed without any complication. FINDINGS: The left ventricular dimension and systolic function appears to be within normal limits. The ejection fraction seems to be in the range of 50% to 55%. The right ventricle appeared to be of normal size and function. The left atrium appeared to be within normal limits. The left atrial appendage to be free from any thrombus with the interatrial septum appeared to be intact without evidence of shunt. It is hyperdynamic septum, though. The aortic root appeared to be mildly dilated. The aortic valve is trileaflet valve without stenosis or regurgitation. The mitral valve seems to be mildly thickened with mild MR. Normal tricuspid valve and pulmonary valve. CONCLUSION: 1. No evidence of cardiac source of embolization. 2. Hyperdynamic interatrial septum without any evidence of shunt. 3. Normal left atrial appendage without any evidence of thrombus. 4. Normal left ventricular dimension and systolic function. 5. Mildly dilated aortic root. 6. Normal intracardiac valve. 7. No evidence of pericardial effusion. MMODL / IJN: [id number] /
== END ==
LOC: CATHCVL 06:42
PROVIDERS: ATTEND Internal Medicine Interventional Cardiology
DX: I65.23 Occlusion and stenosis of bilateral carotid arteries (principal); Z86.73 Personal history of transient ischemic attack (TIA), and cerebral infarction without residual deficits; I10 Essential (primary) hypertension; F17.210 Nicotine dependence, cigarettes, uncomplicated; Z82.49 Family history of ischemic heart disease and other diseases of the circulatory system; Z79.82 Long term (current) use of aspirin; Z79.899 Other long term (current) drug therapy
CPT/HCPCS: 93312; 93320; 93325; J2250; J3010; J2704

== ENCOUNTER 2022-05-02 09:10 | Day surgery (SDC) | payer MEDICARE ==
[2022-05-01 09:20] VITALS: BMI 25.1
[~2022-05-02 09:10] MED LIST changes: -IV FLUID CONTINUATION 1,000 ML IV ONE; +LACTATED RINGERS 1,000 ML IV SCH; -PROPOFOL 10 MG/ML 20 ML VIAL IV ONE; -SODIUM CHLORIDE 0.9% 250 ML IV ONE
[2022-05-02 09:53] VITALS: TEMP 97.3
--- NOTE | 2022-05-02 10:19 | P.GSHP ---
History of Present Illness H&P Date: 05/02/22 Chief Complaint: Screening colonoscopy Assistants 66-year-old male who presents today for screening colonoscopy. Patient denies a significant GI complaints. Past Medical History Past Medical History: CVA/TIA, Hyperlipidemia, Hypertension, Musculoskeletal Disorder, Neurologic Disorder Additional Past Medical History / Comment(s): Diverticulosis, benign colon polyp removed, horse shoe kidney, lower back pains @ times, Stroke July 2016.-LIMITED MOBILITY SINCE CVA History of Any Multi-Drug Resistant Organisms: None Reported Past Surgical History: No Surgical Hx Reported Additional Past Surgical History / Comment(s): Colonoscopy 12/18/15 Additional Past Anesthesia/Blood Transfusion Reaction / Comment(s): Elevated BP with colonoscopy-has since seen PCP. Smoking Status: Current every day smoker - Past Family History Father Family Medical History: Cancer, Diabetes Mellitus Additional Family Medical History / Comment(s): esophageal ca- Mother Family Medical History: Hypertension, Thyroid Disorder Medications and Allergies Home Medications Medication Instructions Recorded Confirmed Type Multivit-Min/FA/Lycopen/Lutein 1 tab PO PC-SUPPER 01/03/16 05/02/22 History [Centrum Silver Tablet] Aspirin 325 mg PO DAILY tab 08/02/16 05/01/22 Rx Atorvastatin [Lipitor] 20 mg PO HS #30 tab 08/02/16 05/02/22 Rx Multivitamins, Thera [Multivitamin 1 each PO DAILY@1200 tab 08/02/16 05/02/22 Rx (formulary)] amLODIPine [Norvasc] 10 mg PO DAILY #30 tab 08/02/16 05/02/22 Rx lisinopriL [Zestril] 10 mg PO DAILY #30 tab 08/02/16 05/02/22 Rx Clopidogrel [Plavix] 75 mg PO DAILY 05/01/22 05/01/22 History Allergies Allergy/AdvReac Type Severity Reaction Status Date / Time No Known Allergies Allergy Verified 05/02/22 09:46 Surgical - Exam Vital Signs Temp Pulse Resp BP Pulse Ox 97.3 F L 104 H 18 114/71 94 L 05/02/22 09:42 05/02/22 09:42 05/02/22 09:42 05/02/22 09:42 05/02/22 09:42 - General well developed, well nourished, no distress - Eyes PERRL - ENT normal pinna - Neck no masses - Respiratory normal expansion - Cardiovascular Rhythm: regular - Abdomen Abdomen: soft, non tender Assessment and Plan Assessment: We'll perform screening colonoscopy
[2022-05-02] MEDS ORDERED: PROPOFOL 10 MG/ML 20 ML VIAL IV ONE (10:22)
--- NOTE | 2022-05-02 10:35 | P.OP ---
Date of Procedure: 05/02/22 Preoperative Diagnosis: Screening colonoscopy Postoperative Diagnosis: Diverticulosis Procedure(s) Performed: Colonoscopy Anesthesia: MAC Surgeon: Domingo Morrison Pathology: none sent Condition: stable Disposition: PACU Description of Procedure: The patient's placed on the endoscopy table in the lateral position. He received IV sedation. Digital rectal exam was performed. There a few external hemorrhoids. Colonoscope was then placed patient anus and passed throughout the entire colon. The ileocecal valve was visualized. The cecum, ascending and transverse colon appeared normal. In the descending; there is mild diverticular changes. The scope was then brought back the rectum and this appeared normal. Scope withdrawn for patient.
[2022-05-02 10:51] VITALS: BP 109/73; PULSE 76; RESP 15
== END 2022-05-02 11:15 | disposition home or self-care (01) ==
LOC: ORWHC2ENDO 09:10
PROVIDERS: ATTEND Surgery
DX: Z12.11 Encounter for screening for malignant neoplasm of colon (principal); K64.4 Residual hemorrhoidal skin tags; K57.30 Diverticulosis of large intestine without perforation or abscess without bleeding; Z87.19 Personal history of other diseases of the digestive system; I10 Essential (primary) hypertension; E78.5 Hyperlipidemia, unspecified; G70.9 Myoneural disorder, unspecified; Z86.73 Personal history of transient ischemic attack (TIA), and cerebral infarction without residual deficits; Q63.1 Lobulated, fused and horseshoe kidney; Z98.890 Other specified postprocedural states; F17.200 Nicotine dependence, unspecified, uncomplicated; Z83.3 Family history of diabetes mellitus; Z80.0 Family history of malignant neoplasm of digestive organs; Z83.49 Family history of other endocrine, nutritional and metabolic diseases; Z82.49 Family history of ischemic heart disease and other diseases of the circulatory system; Z79.82 Long term (current) use of aspirin; Z79.02 Long term (current) use of antithrombotics/antiplatelets; Z79.01 Long term (current) use of anticoagulants; Z79.1 Long term (current) use of non-steroidal anti-inflammatories (NSAID); Z79.899 Other long term (current) drug therapy
CPT/HCPCS: 45378; J2704

== ENCOUNTER → 2022-05-27 | Outpatient (CLI) | payer MEDICARE ==
--- NOTE | 2022-05-27 18:40 | CTL ---
EXAMINATION TYPE: CT Low Dose Lung DATE OF EXAM ORDERED: 05/27/2022 HISTORY: PICC team dependence. Lung cancer screening CT DLP: 73.[address] CTDI: 1.8 mGy Automated exposure control for dose reduction was used. SCREENING VISIT: Initial COMPARISON: None TECHNIQUE: Low dose computed tomography scan was performed through the chest at 1 mm thick sections a nd reconstructed in the coronal plane at [address] DIAGNOSTIC QUALITY: Satisfactory FINDINGS: LUNG NODULES: None. 1. Density with small cavitations in the posterior lateral right apex. This measures 5.3 x 3.6 cm in size. Additional workup for neoplasm is recommended. LUNGS: COPD: Severity: Mild Fibrosis: Severity: None Lymph nodes: None Other findings: Ascending thoracic aorta at the level of the main pulmonary artery is 4.2 cm. Main pu lmonary artery the bifurcation is 2.6 cm. RIGHT PLEURAL SPACE: Effusion: None Calcification: None Thickening: None Pneumothorax: None LEFT PLEURAL SPACE: Effusion: None Calcification: None Thickening: None Pneumothorax: None HEART: Heart Size: Normal Coronary calcification: Mild Pericardial effusion: None OTHER FINDINGS: Upper abdomen: Normal Bony thorax: Normal Supraclavicular region: Normal IMPRESSION: 1. Complex cavitary area posterior lateral right apex. This should be considered neoplasm until prove n otherwise. 2. Ascending thoracic aortic aneurysm FOLLOW UP CT CHEST RECOMMENDATION: Yes, PET/CT CT LUNG RAD: Lung-Rad 4B Suspicious
== END | disposition home or self-care (01) ==
LOC: RADCTMAIN 15:24
PROVIDERS: ATTEND Internal Medicine
DX: Z12.2 Encounter for screening for malignant neoplasm of respiratory organs (principal); I71.21 Aneurysm of the ascending aorta, without rupture; J98.4 Other disorders of lung; F17.218 Nicotine dependence, cigarettes, with other nicotine-induced disorders
CPT/HCPCS: 71271

== ENCOUNTER 2023-01-15 11:23 | Day surgery (SDC) | payer MEDICARE ==
[2023-01-14 11:44] VITALS: BMI 27.3
[~2023-01-15 11:23] MED LIST changes: +ATROPINE SULFATE 0.4 MG/ML 1 ML VIAL IM ONE; +DEXAMETHASONE SOD PHOSPHATE 4 MG/ML 1 ML VIAL IV ONE; +HYDROmorphone 0.5 MG/0.5 ML SYRINGE IVP PRN; +LIDOCAINE 1% (10MG/ML) FOR IV START INTRADERMA PRN; +MIDAZOLAM 2 MG/2 ML VIAL IV PRN; +ONDANSETRON 4 MG/2 ML VIAL IVP ONE
== END 2023-01-15 12:58 | disposition home or self-care (01) ==
LOC: ORWHC2ENDO 11:23
PROVIDERS: ATTEND Internal Medicine Critical Care Medicine
DX: Z53.8 Procedure and treatment not carried out for other reasons (principal); R91.1 Solitary pulmonary nodule

== ENCOUNTER 2023-01-17 13:35 | Day surgery (SDC) | payer MEDICARE ==
[2023-01-16 10:25] VITALS: BMI 27.3
[~2023-01-17 13:35] MED LIST changes: -DEXAMETHASONE SOD PHOSPHATE 4 MG/ML 1 ML VIAL IV ONE; -HYDROmorphone 0.5 MG/0.5 ML SYRINGE IVP PRN; -LIDOCAINE 1% (10MG/ML) FOR IV START INTRADERMA PRN; -MIDAZOLAM 2 MG/2 ML VIAL IV PRN; -ONDANSETRON 4 MG/2 ML VIAL IVP ONE
[2023-01-17 14:10] VITALS: TEMP 97.7
[2023-01-17] MEDS ORDERED: ONDANSETRON 4 MG/2 ML VIAL ONE (14:17)
[2023-01-17] MEDS ORDERED: ONDANSETRON 4 MG/2 ML VIAL IVP ONE (14:23)
[2023-01-17] MEDS ORDERED: DEXAMETHASONE SOD PHOSPHATE 4 MG/ML 1 ML VIAL IVP ONE (14:24)
[2023-01-17] MEDS ORDERED: fentaNYL (PF) 50 MCG/ML 2 ML AMP ONE (16:24)
[2023-01-17] MEDS ORDERED: LIDOCAINE 4% LTA KIT (4 ML) TOPICAL ONE (16:24)
[2023-01-17] MEDS ORDERED: MIDAZOLAM 2 MG/2 ML VIAL ONE (16:24)
[2023-01-17] MEDS ORDERED: PROPOFOL 10 MG/ML 20 ML VIAL IV ONE (16:24)
[2023-01-17] MEDS ORDERED: SUCCINYLCHOLINE CHLORIDE 200 MG/10 ML VIAL IV ONE (16:24)
[2023-01-17] MEDS ORDERED: LIDOCAINE 2% INJ 20 MG/ML (2 ML VIAL) ONE (16:24)
[2023-01-17 17:57] VITALS: RESP 18
--- NOTE | 2023-01-17 18:14 | XR ---
EXAMINATION TYPE: XR chest 1V portable DATE OF EXAM: 01/17/2023 COMPARISON: 07/29/2016 INDICATION: Post right upper lobe biopsy bronchoscopy TECHNIQUE: Single frontal view of the chest is obtained. FINDINGS: The heart size is normal. The pulmonary vasculature is normal. There is ill-defined increased density through the right upper lung field. No pneumothorax is evident . Old right rib fractures are evident. IMPRESSION: 1. No pneumothorax post bronchoscopy. 2. Right upper lobe density.
[2023-01-17 18:24] VITALS: BP 100/67; PULSE 98
--- NOTE | 2023-01-17 22:13 | PCN ---
PROCEDURE NOTE PROCEDURES PERFORMED: Bronchoscopy, airway examination, therapeutic lavage, bronchoalveolar lavage, brushes right upper lobe; endobronchial and transbronchial biopsies right upper lobe. Bronchoalveolar lavage, right upper lobe. PREOPERATIVE DIAGNOSES: Cavitary lesion, right upper lobe, rule out cancer versus infection. POSTOPERATIVE DIAGNOSIS: Cavitary lesion, right upper lobe, rule out cancer versus infection. ANESTHESIA PROVIDED: General anesthesia. There was informed consent and universal timeout. FIRST PRINCIPAL BIOSTATISTICIAN: Dr. Ashlee Ball. DESCRIPTION OF PROCEDURE: After the patient was sedated and on anesthesia machine, the bronchoscope was inserted through the bronchoscope adapter connected to the endotracheal tube. We did a quick examination of both lungs. The right upper lobe and its 3 segments, right middle lobe and its 2 segments, right lower lobe and its 5 segments, left upper lobe proper and its 2 segments, lingula and its 2 segments and left lower lobe and its 4 segments all appeared relatively normal. There was no endobronchial mass or tumor. Next, we focused our attention to the right upper lobe. Under fluoroscopic guidance, we did brushes to the apical segment of the right upper lobe. Subsequent to that, we did multiple endobronchial and transbronchial biopsies to the right upper lobe under fluoroscopic guidance. Finally, we did a BAL in the right upper lobe. There was minimal bleeding. We ensured that there was hemostasis prior to removing the bronchoscope. The specimens will be sent to the laboratory for analysis. We checked for pneumothorax before the procedure was completed and there was no obvious pneumothorax on fluoroscopic evaluation. There will be a formal chest x-ray done. The patient tolerated the procedure well. The patient will be recovered and discharged. I did speak to the patient's son. There was no immediate complication. MMODL / IJN: [id number] /
--- NOTE | 2023-01-19 18:51 | FL ---
Intraoperative/procedural fluoroscopic services were provided. Total fluoroscopy time is 2 minutes 3 seconds with a total of 1 submitted images to PACS. Please see the operative/procedural note for furt her details. DAP: 0.9487 Gycm2
== END 2023-01-17 18:27 | disposition home or self-care (01) ==
LOC: ORWHC2ENDO 13:35
PROVIDERS: ATTEND Internal Medicine Critical Care Medicine
DX: J98.4 Other disorders of lung (principal); E78.5 Hyperlipidemia, unspecified; G40.909 Epilepsy, unspecified, not intractable, without status epilepticus; J44.9 Chronic obstructive pulmonary disease, unspecified; F17.210 Nicotine dependence, cigarettes, uncomplicated; Z79.02 Long term (current) use of antithrombotics/antiplatelets; Z79.899 Other long term (current) drug therapy; Z79.51 Long term (current) use of inhaled steroids
CPT/HCPCS: 87798 ×3; 87496; 87498; 87529; 88104; 88108; 88305; 87502; 87634; 87070; 87205; 87116; 87102; 87206; 71045; 31628; 31623; 31624; J2250; J0330; J0461; J1100; J2405; J3010; J2704; J2001

== ENCOUNTER → 2023-04-14 | Outpatient (CLI) | payer MEDICARE ==
[2023-04-14 13:59] LABS: African American GFR (CKD) >90 (>60 ml/min/1.73 sqM); Blood Urea Nitrogen 11 mg/dL (9-20); Non-African American GFR(CKD) 84 (>60 ml/min/1.73 sqM)
--- NOTE | 2023-04-15 08:04 | CT ---
EXAMINATION TYPE: CT chest w con DATE OF EXAM: 04/14/2023 COMPARISON: 08/02/2022 HISTORY: f/u abnormal scan CT DLP: 423 mGycm, Automated exposure control for dose reduction was used. CONTRAST: Performed injected with 100ml mL of Isovue 300. TECHNIQUE: Axial images were obtained at 5 mm thick sections. Reconstructed images are reviewed on [employer] computer in the coronal plane. FINDINGS: Portion of the thyroid visualized is normal. There is a stable 4.3 cm complex cavitary area within the lateral right apex. Findings appear unchang ed. No enlarged mediastinal or hilar adenopathy is evident. Some shotty lymphadenopathy is present. The ascending aorta diameter at the level of the main pulmonary artery is 3.8 cm. The main pulmonary art breann diameter at the bifurcation is 2.[address] sections are obtained through the upper abdomen. Small hepatic cysts within the medial rig ht lobe liver. IMPRESSION: 1. Stable appearance of the complex cavitary area lateral right upper lung field.
== END | disposition home or self-care (01) ==
LOC: RADCTMAIN 13:28
PROVIDERS: ATTEND Internal Medicine Critical Care Medicine
DX: R91.8 Other nonspecific abnormal finding of lung field (principal)
CPT/HCPCS: 82565; 84520; 71260; 36415; Q9967

== ENCOUNTER → 2023-10-17 | Outpatient (CLI) | payer MEDICARE ==
[2023-10-17 18:20] LABS: African American GFR (CKD) >90 (>60 ml/min/1.73 sqM); Blood Urea Nitrogen 14 mg/dL (9-20); Non-African American GFR(CKD) 86 (>60 ml/min/1.73 sqM)
--- NOTE | 2023-10-17 20:36 | CT ---
EXAMINATION TYPE: CT chest w con CT DLP: 223.9 mGycm, Automated exposure control for dose reduction was used. DATE OF EXAM: 10/17/2023 6:52 PM COMPARISON: 04/14/2023, 06/21/2022 CLINICAL INDICATION:Male, 68 years old with history of R91.8 OTHER NONSPECIFIC ABNORMAL FINDING OF SHIRA NG F; [facility], 6 Month follow up. Abnormal findings on prior exam. TECHNIQUE: Multiple axial images were obtained through the chest. Sagittal and coronal reformats were created for review. Contrast used:100cc mL of Isovue 300 with IV Contrast (None if empty) Oral contrast used: (None if empty) FINDINGS: LUNGS/ PLEURA: Increasing soft tissue component of the right upper lung cystic and and partially adelso d lesion. No measuring 55 x 38 millimeters. AIRWAY: Patent and unremarkable. HEART: Size within normal limits. Mild atherosclerotic obscuration's of the arteries. MEDIASTINUM: No gross evidence of adenopathy. VASCULATURE: No aortic aneurysm. MUSCULOSKELETAL: No acute osseous abnormalities SOFT TISSUES/LYMPH NODES: Unremarkable. LOWER NECK: No significant findings. UPPER ABDOMEN: Probable hepatic cyst. Gallstones present in the gallbladder neck. Scattered colonic d iverticula. IMPRESSION: 1. Increased solid component of the cystic lesion in the right upper lung. Overall size is not signi ficantly changed and accounting for slice selection. Findings could represent superimposed infection. Tissue sampling of nodularity performed is recommended. No new or enlarging pulmonary nodules. No ev idence for lymphadenopathy. 2. Cholelithiasis. 3. Colonic diverticulosis.
== END | disposition home or self-care (01) ==
LOC: RADCTMAIN 17:36
PROVIDERS: ATTEND Internal Medicine Critical Care Medicine
DX: K80.20 Calculus of gallbladder without cholecystitis without obstruction (principal); K57.30 Diverticulosis of large intestine without perforation or abscess without bleeding; R91.8 Other nonspecific abnormal finding of lung field
CPT/HCPCS: 82565; 84520; 71260; 36415; Q9967